=== PATIENT | male | born 1980 | race Caucasian/White ===

== ENCOUNTER 2021-06-17 05:34 | Outpatient (CLI) | payer OTHER ==
[~2021-06-17] VITALS: Ht 180.3 cm; Wt 104.1 kg
[2021-06-17] MEDS ORDERED: HYDR25TA4 PO (14:59)
[2021-06-17] MEDS ORDERED: MTP25TSR PO (14:59)
[2021-06-17] MEDS ORDERED: PANT40TA52 PO (14:59)
== END 2021-06-17 15:40 | disposition home or self-care (01) ==
LOC: PREOP 05:34
PROVIDERS: ATTEND Surgery
DX: Z01.818 Encounter for other preprocedural examination (principal)

== ENCOUNTER 2021-06-24 08:47 | Day surgery (SDC) | payer OTHER ==
[~2021-06-24] VITALS: Ht 180 cm; Wt 104.1 kg
[~2021-06-24 08:47] MED LIST: HYDR25TA4 PO; MTP25TSR PO; PANT40TA52 PO
[2021-06-24] MEDS ORDERED: LACTATED RINGERS 1,000 ML IV STA (08:49)
[2021-06-24] MEDS ORDERED: LACTATED RINGERS 1,000 ML IV ONE (08:51)
[2021-06-24] MEDS ORDERED: PROPOFOL INJECTION 50 ML IV ONE (08:54)
[2021-06-24] MEDS ORDERED: MIDAZOLAM 2 MG/2 ML (VERSED) VIAL ONE (08:54)
--- NOTE | 2021-06-24 09:05 | Progress Note-Pre Operative ---
Pre-Operative Progress Note H&P Reviewed The H&P was reviewed, patient examined and no changes noted. Date Seen by Provider: Jun 24, 2021 Time Seen by Provider: 09:05 Date H&P Reviewed: Jun 24, 2021 Time H&P Reviewed: 09:05 Pre-Operative Diagnosis: blood in stool RAMON VANN DO Jun 24, 2021 09:05
[2021-06-24 09:20] VITALS: BP 135/106
[2021-06-24 10:15] VITALS: BP 109/77
--- NOTE | 2021-06-24 10:16 | Discharge Inst-Simple/Standard ---
Discharge Inst-Standard Patient Instructions/Follow Up Plan of Care/Instructions/FU: 2 weeks Trisha Activity as Tolerated: Yes Discharge Diet: Regular Diet (high fiber) RAMON VANN DO Jun 24, 2021 10:16
[2021-06-24 10:20] VITALS: BP 101/71
[2021-06-24 10:45] VITALS: BP 121/78
--- NOTE | 2021-06-24 11:19 | Progress Note-Post Operative ---
Post-Operative Progess Note Surgeon (s)/Sports Attorney (s) Surgeon RAMON VANN DO Sports Attorney: na Pre-Operative Diagnosis blood in stool Post-Operative Diagnosis post anal fissure Procedure & Operative Findings Date of Procedure 06/24/21 Procedure Performed/Findings colonoscopy Anesthesia Type per tax manager public Estimated Blood Loss Estimated blood loss (mL): none Specimens/Packing Specimens Removed na RAMON VANN DO Jun 24, 2021 11:19
--- NOTE | 2021-06-24 13:48 | Anesthesia-General Post-Op ---
MAC Patient Condition Mental Status/LOC: Same as Preop Cardiovascular: Satisfactory Nausea/Vomiting: Absent Respiratory: Satisfactory Pain: Controlled Complications: Absent Post Op Complications Complications None Follow Up Care/Instructions Patient Instructions None needed. Anesthesiology Discharge Order Discharge Order Patient is doing well, no complaints, stable vital signs, no apparent adverse anesthesia problems. No complications reported per nursing. KENJI JHAVERI CRNA Jun 24, 2021 13:48
--- NOTE | 2021-06-24 14:31 | OPERATIVE REPORT ---
DATE OF SERVICE: 06/24/2021 PREOPERATIVE DIAGNOSIS: Blood in stool. POSTOPERATIVE DIAGNOSIS: Posterior anal fissure. PROCEDURE: Colonoscopy. SURGEON: Ramon Rico DO ANESTHESIA: Per SENIOR BUSINESS BROKER. ESTIMATED BLOOD LOSS: None. COMPLICATIONS: None. INDICATIONS: The patient is a 41-year-old male with blood in stool and colonoscopy. He understands risks and benefits of procedure and wished to proceed. Consent was signed in the chart. DESCRIPTION OF PROCEDURE: The patient was taken to the endoscopy suite, placed in left lateral recumbent position. Timeout was performed. Digital rectal exam was performed. A posterior anal fissure noted. No palpable polyps, masses or ulcerations. Scope was inserted in the rectum and advanced all the way to cecum with minimal difficulty. Prep was adequate. Scope was slowly retracted back. No polyps, masses or ulcerations within the cecum, ascending, transverse, descending and sigmoid colon. Once in the rectum, scope was retroflexed noting no other pathology. Scope was returned to its normal position, slowly withdrawn until completely removed. The patient tolerated procedure well without any complications. He was taken to the recovery room in stable condition. RECOMMENDATIONS: The patient will need repeat colonoscopy in 10 years. Any issues before that be seen at that time. The patient will follow up in our office in 2 weeks. We will also try some diltiazem cream prior to followup. CC: Samina Parada -- requested, unable to deliver. Job ID: [id number] DocumentID: [id number] Dictated Date: 06/24/2021 10:19:09 Roentgenology Teacher Date: 06/24/2021 14:30:28 Dictated By: RAMON RICO DO
== END 2021-06-24 10:45 | disposition home or self-care (01) ==
LOC: ENDO 08:47
PROVIDERS: ATTEND Surgery
DX: K60.2 Anal fissure, unspecified (principal); K62.5 Hemorrhage of anus and rectum; K21.9 Gastro-esophageal reflux disease without esophagitis; I10 Essential (primary) hypertension; E66.9 Obesity, unspecified; Z68.32 Body mass index [BMI] 32.0-32.9, adult; Z87.891 Personal history of nicotine dependence; Z79.899 Other long term (current) drug therapy

== ENCOUNTER → 2021-07-22 | Outpatient (CLI) | payer OTHER | LOC: LABNPT 15:05 | PROVIDERS: ATTEND Family Medicine | DX: Z20.822 Contact with and (suspected) exposure to COVID-19 (principal) | CPT/HCPCS: 87635 ==